=== PATIENT | male | born 1960 | race Caucasian/White ===

== ENCOUNTER 2018-05-21 08:40 | Emergency (ER) | payer OTHER ==
[~2018-05-21] VITALS: Ht 180.3 cm; Wt 137.0 kg
[~2018-05-21 08:40] MED LIST: ATENOLOL25 MG; COZAAR25 MG
[2018-05-21] MEDS ORDERED: ZANTAC300 MG (09:02)
[2018-05-21] MEDS ORDERED: HYZAAR 100-251 EACH (09:02)
== END 2018-05-21 12:58 | disposition home or self-care (01) ==
LOC: ER 08:40
DX: R22.0 Localized swelling, mass and lump, head (principal)

== ENCOUNTER 2019-09-04 13:44 | Emergency (ER) | payer OTHER ==
[~2019-09-04] VITALS: Ht 180.3 cm; Wt 140.6 kg
[~2019-09-04 13:44] MED LIST changes: +HYZAAR 100-251 EACH; +ZANTAC300 MG
[2019-09-04] MEDS ORDERED: HIBICLENS118 ML TOP (16:12)
[2019-09-04] MEDS ORDERED: MUPIROCIN15 GM TOP (16:12)
== END 2019-09-04 16:19 | disposition home or self-care (01) ==
LOC: ER 13:44
DX: L02.411 Cutaneous abscess of right axilla (principal)

== ENCOUNTER 2019-10-18 11:42 | Outpatient (CLI) | payer OTHER ==
[~2019-10-18 11:42] MED LIST changes: +HIBICLENS118 ML TOP; +MUPIROCIN15 GM TOP
== END 2019-10-18 12:43 | disposition home or self-care (01) ==
LOC: RAD 11:42
PROVIDERS: ATTEND Orthopaedic Surgery
DX: M25.571 Pain in right ankle and joints of right foot (principal); M25.561 Pain in right knee; M25.562 Pain in left knee

== ENCOUNTER 2022-12-14 15:03 | Emergency (ER) | payer OTHER ==
[~2022-12-14] VITALS: Ht 154.9 cm; Wt 138.3 kg
[2022-12-14] MEDS ORDERED: ASA81 MG (16:11)
[2022-12-14] MEDS ORDERED: INTESTINEX680 M1 PO (20:01)
[2022-12-14] MEDS ORDERED: PEPCID AC20 MG PO (20:01)
[2022-12-14] MEDS ORDERED: DICY20TA PO (20:01)
== END 2022-12-14 20:18 | disposition home or self-care (01) ==
LOC: ER 15:03
PROVIDERS: General Practice
DX: K52.9 Noninfective gastroenteritis and colitis, unspecified (principal); Z20.822 Contact with and (suspected) exposure to COVID-19; I10 Essential (primary) hypertension; G47.30 Sleep apnea, unspecified

== ENCOUNTER 2024-06-27 09:02 | Emergency (ER) | payer OTHER ==
[~2024-06-27] VITALS: Ht 180.3 cm; Wt 135.2 kg
[~2024-06-27 09:02] MED LIST changes: +ASA81 MG; +DICY20TA PO; +INTESTINEX680 M1 PO; +PEPCID AC20 MG PO
[2024-06-27] MEDS ORDERED: LOSARTAN-HCTZ1 EAC2 (09:14)
[2024-06-27] MEDS ORDERED: ADULT LOW DOSE81 M1 (09:15)
[2024-06-27] MEDS ORDERED: KETOROLAC TROMETHAMINE 60 MG VIAL IM STA (09:36)
[2024-06-27] MEDS ORDERED: KETOROLAC TROMETHAMINE 60 MG VIAL IM ONE (09:49)
== END 2024-06-27 12:53 | disposition home or self-care (01) ==
LOC: ER 09:04
DX: M25.569 Pain in unspecified knee (principal); I10 Essential (primary) hypertension

== ENCOUNTER 2024-07-09 06:08 | Inpatient (IN) | payer OTHER ==
[~2024-07-09] VITALS: Ht 180.3 cm; Wt 133.8 kg
[~2024-07-09 06:08] MED LIST changes: +ADULT LOW DOSE81 M1; +LOSARTAN-HCTZ1 EAC2
[2024-07-09] MEDS ORDERED: HYDROCHLOROTHIA25 MG PO (06:15)
[2024-07-09] MEDS ORDERED: METOPROLOL SUCC50 MG PO (06:15)
[2024-07-09] MEDS ORDERED: MORPHINE SULFATE 2 MG/ML SYRINGE IV ONE (08:45)
[2024-07-09] MEDS ORDERED: 0.9 % SODIUM CHLORIDE 1,000 ML IV ONE (08:45)
[2024-07-09] MEDS ORDERED: VANCOMYCIN HCL 1,000 MG VIAL IV ONE (08:45)
[2024-07-09] MEDS ORDERED: FAMOtidine 10 MG/ML (4ML VIAL) IV ONE (08:45)
[2024-07-09] MEDS ORDERED: VANCOMYCIN HCL 1,000 MG VIAL ONE (09:25)
[2024-07-09] MEDS ORDERED: FAMOTIDINE/PF 20 MG/2 ML VIAL ONE (09:26)
[2024-07-09 10:21] LABS: HEMATOCRIT 46.8 % (39.0-48.0); HEMOGLOBIN 15.8 g/dL (13-16.00); MEAN CELL VOLUME 86.8 fL (80.0-100.00); MEAN CORPUSCULAR HEMOGLOBIN 29.2 pg (27.00-32.0); MEAN CORPUSCULAR HGB CONC 33.7 g/dl (32.0-36.0); PLATELET COUNT 206 K/uL (150-450); RED CELL DISTRIBUTION WIDTH 14.3 % (11.5-14.5)
[2024-07-09 10:28] LABS: ERYTHROCYTE SEDIMENTATION RATE 23 mm/hr
[2024-07-09 10:44] LABS: ALBUMIN 3.5 gm/dL (3.4-5.0); BILIRUBIN TOTAL 1.33 mg/dL (0.3-1.2); CALCIUM 9.4 mg/dL (8.5-10.1); CREATININE SERUM 0.84 mg/dL (0.70-1.30); GFR 92.29; GLOBULINA 4.1 G/DL (2.4-3.5); POTASSIUM 3.94 mEq/L (3.5-5.1); TOTAL PROTEIN 7.6 gm/dL (6.4-8.2)
[2024-07-09 10:53] LABS: URINE APPEARANCE Clear; URINE BILIRRUBIN Negative (NEGATIVE); URINE BLOOD Negative; URINE COLOR Yellow; URINE GLUCOSE Negative (NEGATIVE); URINE KETONE Negative (NEGATIVE); URINE LEUKOCYTE Negative; URINE NITRATE Negative; URINE PROTEIN Negative (NEGATIVE)
[2024-07-09 10:57] LABS: URINE RBC 2.5 uL (0.0-20.8); URINE WBC 2.5 uL (0.0-23.2)
[2024-07-09 11:09] LABS: C-REACTIVE PROTEIN 4.38 MG/DL (0.00-0.29)
[2024-07-09 11:17] LABS: URINE BACTERIA 2.4 uL (0.0-1933)
[2024-07-09] MEDS ORDERED: MORPHINE SULFATE 4 MG/ML VIAL IV ONE (13:45)
[2024-07-09] MEDS ORDERED: LOSARTAN/HYDROCHLOROTHIAZIDE 1 TAB TABLET PO SCH (22:15)
[2024-07-09] MEDS ORDERED: ACETAMINOPHEN 325 MG TABLET PO PRN (22:15)
[2024-07-09] MEDS ORDERED: 0.9 % SODIUM CHLORIDE 1,000 ML IV SCH (22:15)
[2024-07-09] MEDS ORDERED: KETOROLAC TROMETHAMINE 30 MG VIAL IM PRN (22:15)
[2024-07-09] MEDS ORDERED: ASPIRIN 81 MG TABLET.EC PO SCH (22:16)
[2024-07-09] MEDS ORDERED: PIPERACILLIN/TAZOBACTAM SODIUM 3.375 GM VIAL IV ONE (23:41)
[2024-07-10] MEDS ORDERED: PIPERACILLIN/TAZOBACTAM SODIUM 3.375 GM in 0.9 % SODIUM CHLORIDE 100 ML IV SCH
[2024-07-10 00:30] VITALS: BP 121/77
[2024-07-10 03:55] VITALS: BP 132/79; O2SAT 99
[2024-07-10 08:00] VITALS: BP 139/78; O2SAT 97
[2024-07-10] MEDS ORDERED: ACETAMINOPHEN 500 MG GEL..CAP PO PRN (09:15)
[2024-07-10 11:12] LABS: COVID-19 AG NEGATIVE (NEGATIVE)
[2024-07-10 11:23] LABS: INR 1.19; PARTIAL THROMBOPLASTIN TIME 28.6 SECONDS (22.0-34.0); PROTHROMBIN TIME 12.8 SECONDS (9.0-11.5)
[2024-07-10 11:48] LABS: BILIRUBIN TOTAL 1.72 mg/dL (0.3-1.2); CALCIUM 8.5 mg/dL (8.5-10.1); CREATININE SERUM 0.83 mg/dL (0.70-1.30); GFR 93.57; GLOBULINA 3.7 G/DL (2.4-3.5); POTASSIUM 4.4 mEq/L (3.5-5.1); TOTAL PROTEIN 6.7 gm/dL (6.4-8.2)
[2024-07-10] MEDS ORDERED: LINEZOLID IN DEXTROSE 5% 600 MG/300 ML PIGGYBAG IV STA (13:23)
[2024-07-10 16:29] VITALS: BP 105/66; O2SAT 98
[2024-07-10] MEDS ORDERED: LACTOBACILLUS ACIDOPHILUS 1 CAP CAP PO SCH (17:00)
[2024-07-10 19:00] VITALS: BP 107/71; O2SAT 97
[2024-07-10] MEDS ORDERED: LINEZOLID IN DEXTROSE 5% 600 MG/300 ML PIGGYBAG IV SCH (21:00)
[2024-07-11 00:13] VITALS: BP 104/57; O2SAT 96
[2024-07-11] MEDS ORDERED: KETOROLAC TROMETHAMINE 60 MG VIAL IM ONE (07:07)
[2024-07-11] MEDS ORDERED: POVIDONE-IODINE 118 ML BOTT TOP ONE (07:07)
[2024-07-11] MEDS ORDERED: BUPIVACAINE HCL/MPF 0.5% 30ML VIAL ONE (07:07)
[2024-07-11] MEDS ORDERED: LIDOCAINE HCL 1%/EPINEPHRINE 20ML VIAL IJ ONE (07:08)
[2024-07-11] MEDS ORDERED: VANCOMYCIN HCL 1,000 MG VIAL ONE (07:08)
[2024-07-11] MEDS ORDERED: ISOPROPYL ALCOHOL 30 ML OUNCE TOP ONE (07:08)
[2024-07-11] MEDS ORDERED: TRANEXAMIC ACID 100MG/1ML (1000MG) AMPUL IV ONE (07:08)
[2024-07-11] MEDS ORDERED: ENOXAPARIN SODIUM 40 MG/0.4 ML SYRINGE SUBCUTANEO SCH (09:00)
[2024-07-11] MEDS ORDERED: CHLORHEXIDINE GLUCONATE 120 ML BOTTLE TOP SCH (09:00)
[2024-07-11] MEDS ORDERED: ACETAMINOPHEN 500 MG GEL..CAP PO SCH (12:00)
[2024-07-11] MEDS ORDERED: OxyCODONE HCL 5 MG TABLET (ROXICODONE) PO PRN (12:00)
[2024-07-11] MEDS ORDERED: SODIUM CHLORIDE 0.45 % 1,000 ML IV SCH (12:00)
[2024-07-11 17:10] VITALS: BP 116/71; O2SAT 95
[2024-07-11] MEDS ORDERED: VANCOMYCIN HCL 1,000 MG VIAL IV SCH (21:00)
[2024-07-11] MEDS ORDERED: LINEZOLID 600 MG TABLET PO SCH (21:00)
[2024-07-11] MEDS ORDERED: VANCOMYCIN HCL 1,000 MG in 0.9 % SODIUM CHLORIDE 250 ML IV SCH (21:00)
[2024-07-12 00:46] VITALS: BP 127/74; O2SAT 96
[2024-07-12 08:21] VITALS: BP 120/77; O2SAT 99
[2024-07-12] MEDS ORDERED: APIXABAN 2.5 MG TABLET PO SCH (09:00)
[2024-07-12 16:00] VITALS: BP 127/69; O2SAT 97
[2024-07-13 00:35] VITALS: BP 118/63; O2SAT 98
[2024-07-13] MEDS ORDERED: IRON FUM,PS/FOLIC ACID/VITC/B3 1 CAP CAPSULE PO SCH (09:00)
[2024-07-13 10:14] VITALS: BP 117/76; O2SAT 97
[2024-07-13] MEDS ORDERED: PANTOPRAZOLE SODIUM 40 MG/VIAL VIAL IV SCH (14:05)
[2024-07-13 16:00] VITALS: BP 121/61; O2SAT 97
[2024-07-13] MEDS ORDERED: GABAPENTIN 600 MG TABLET PO SCH (21:00)
[2024-07-14 00:08] VITALS: BP 140/82; O2SAT 98
[2024-07-14 07:08] LABS: HEMATOCRIT 37.9 % (39.0-48.0); HEMOGLOBIN 12.8 g/dL (13-16.00); MEAN CELL VOLUME 87.2 fL (80.0-100.00); MEAN CORPUSCULAR HEMOGLOBIN 29.3 pg (27.00-32.0); MEAN CORPUSCULAR HGB CONC 33.6 g/dl (32.0-36.0); PLATELET COUNT 257 K/uL (150-450); RED BLOOD COUNT 4.35 M/uL (4.00-6.00); RED CELL DISTRIBUTION WIDTH 14.4 % (11.5-14.5)
[2024-07-14 08:00] VITALS: BP 125/72; O2SAT 97
[2024-07-14 16:00] VITALS: BP 138/74; O2SAT 96
[2024-07-14] MEDS ORDERED: AMOXICILLIN/POTASSIUM CLAV 875-125 TABLET PO SCH (17:00)
[2024-07-15 00:22] VITALS: BP 136/82; O2SAT 97
[2024-07-15 09:12] VITALS: BP 145/73; O2SAT 99
== END 2024-07-15 13:32 | disposition home or self-care (01) | DRG 487 ==
LOC: ER 06:08 → SURG 22:13 → MEDJ 22:13 → SURG 22:13
PROVIDERS: General Practice; Student in an Organized Health Care Education/Training Program; ADMIT Orthopaedic Surgery; ATTEND Orthopaedic Surgery
PROC: 3E1U48Z Irrigation of Joints using Irrigating Substance, Percutaneous Endoscopic Approach (ICD-10-PCS; 2024-07-11)
PROC: 0SBC4ZZ Excision of Right Knee Joint, Percutaneous Endoscopic Approach (ICD-10-PCS; principal; 2024-07-11 09:00)
DX: M00.861 Arthritis due to other bacteria, right knee (principal); M67.361 Transient synovitis, right knee; M25.461 Effusion, right knee; M94.262 Chondromalacia, left knee; S83.281A Other tear of lateral meniscus, current injury, right knee, initial encounter; I10 Essential (primary) hypertension; E66.9 Obesity, unspecified